=== PATIENT | male | born 1995 | race Caucasian/White ===

== ENCOUNTER 2018-09-08 22:50 | Inpatient (IN) | payer BC ==
[~2018-09-08] VITALS: Ht 185.4 cm; Wt 85.2 kg
[2018-09-08 22:52] VITALS: BP 79/21
[2018-09-08 23:09] LABS: HEMOGLOBIN 12.3 gm/dL (14.0-18.0); MCH 31.5 pg (26.0-34.0); MCHC 32.3 g/dL (28.0-37.0); MCV 97.5 fL (80.0-100.0); PLATELET COUNT 178 thou/uL (150-400); RDW 13.8 % (10.5-14.5); WBC 5.6 thou/uL (4.0-11.0)
[2018-09-08 23:16] LABS: ANION GAP 16 mmol/L (7-16); BUN 12 mg/dL (7-18); CALCIUM 7.6 mg/dL (8.5-10.1); CHLORIDE 105 mmol/L (98-107); CO2 19 mmol/L (21-32); CREATININE 1.4 mg/dL (0.7-1.3); GLUCOSE 313 mg/dL (74-106); POTASSIUM 3.4 mmol/L (3.5-5.1); SODIUM 140 mmol/L (136-145)
[2018-09-08 23:22] LABS: AMP/METHAMP Negative (Negative); BARBITURATES Negative (Negative); BENZODIAZEPINES POSITIVE (Negative); COCAINE Negative (Negative); METHADONE Negative (Negative); OPIATES POSITIVE (Negative); PCP Negative (Negative)
[2018-09-08 23:25] LABS: ALBUMIN 2.8 g/dL (3.4-5.0); SGOT 444 U/L (15-37); SGPT 323 U/L (30-65); TOTAL BILIRUBIN 0.3 mg/dL (<0.1-1.0); TOTAL PROTEIN 5.3 g/dL (6.4-8.2); TROPONIN-I <0.06 ng/mL (<0.06)
[2018-09-08 23:39] LABS: BE(vivo) -17.5 mmol/L (-2 to +3); HCO3 13.2 mmol/L (22.0-26.0); PCO2 51.5 mmHg (35.0-45.0); PO2 472.9 mmHg (80.0-100.0); sO2 99.7 % (92.0-98.0)
[2018-09-08 23:40] LABS: pH 7.025 (7.360-7.450)
[2018-09-09] VITALS (57 sets, daily range): BP systolic 79–191; BP diastolic 21–134
[2018-09-09 00:02] LABS: ABSOLUTE NEUTROPHILS 1.3 thou/uL (1.4-8.2); METAMYELOCYTES 1 %; NUCLEATED RBCS 1 /100WBC
[2018-09-09 00:49] LABS: BE(vivo) -10.7 mmol/L (-2 to +3); HCO3 14.6 mmol/L (22.0-26.0); PCO2 31.8 mmHg (35.0-45.0); PO2 203.5 mmHg (80.0-100.0); sO2 99.3 % (92.0-98.0)
[2018-09-09 00:50] LABS: pH 7.279 (7.360-7.450)
--- NOTE | 2018-09-09 05:23 | NUR ---
PT ARRIVED FROM ED AT 0235. PT UNRESPONSIVE. NO SEDATION AT THAT TIME. PT DOES NOT HAVE A COUGH OR GAG. PUPILS DILATED AND FIXED. NO CORNEAL REFLEX. PT STARTED ON HYPOTHERMIA AT 0248. TEMP REACHED AT 0520. SISTER MALISSA UPDATED AT BEDSIDE ON PLAN OF CARE. SINUS ARRHYTHMIA ON THE MONITOR.
[2018-09-09 05:59] LABS: BE(vivo) -13.4 mmol/L (-2 to +3); HCO3 14.2 mmol/L (22.0-26.0); PCO2 39.2 mmHg (35.0-45.0); PO2 53.7 mmHg (80.0-100.0); pH 7.178 (7.360-7.450); sO2 79.7 % (92.0-98.0)
[2018-09-09 06:14] LABS: HEMATOCRIT 59.7 % (42.0-52.0); MCH 30.9 pg (26.0-34.0); MCHC 32.5 g/dL (28.0-37.0); MCV 94.9 fL (80.0-100.0); RBC 6.28 mil/uL (4.50-6.00); RDW 14.2 % (10.5-14.5)
[2018-09-09 06:23] LABS: HEMOGLOBIN 19.4 gm/dL (14.0-18.0); PLATELET COUNT 281 thou/uL (150-400); WBC 26.9 thou/uL (4.0-11.0)
[2018-09-09 06:26] LABS: APTT 27.6 Seconds (24.5-32.8); INR 1.3
[2018-09-09 06:48] LABS: CALCIUM 7.3 mg/dL (8.5-10.1); CREATININE 1.5 mg/dL (0.7-1.3); MAGNESIUM 1.9 mg/dL (1.8-2.4); PHOSPHORUS 2.3 mg/dL (2.5-4.9); POTASSIUM 3.1 mmol/L (3.5-5.1)
[2018-09-09 07:01] LABS: TROPONIN-I 11.13 ng/mL (<0.06)
[2018-09-09 07:02] LABS: ABSOLUTE NEUTROPHILS 23.4 thou/uL (1.4-8.2); PLATELET ESTIMATE NORMAL
[2018-09-09 08:20] LABS: HEMATOCRIT 55.4 % (42.0-52.0); HEMOGLOBIN 18.1 gm/dL (14.0-18.0); MCH 30.7 pg (26.0-34.0); MCHC 32.7 g/dL (28.0-37.0); MCV 93.9 fL (80.0-100.0); RBC 5.9 mil/uL (4.50-6.00); RDW 14.2 % (10.5-14.5); WBC 28.4 thou/uL (4.0-11.0)
[2018-09-09 08:21] LABS: BE(vivo) -13.1 mmol/L (-2 to +3); HCO3 14.5 mmol/L (22.0-26.0); PCO2 39.3 mmHg (35.0-45.0); PO2 74.4 mmHg (80.0-100.0); pH 7.184 (7.360-7.450); sO2 91.4 % (92.0-98.0)
[2018-09-09 08:45] LABS: ALBUMIN 2.9 g/dL (3.4-5.0); CALCIUM 7.1 mg/dL (8.5-10.1); CREATININE 1.7 mg/dL (0.7-1.3); TOTAL BILIRUBIN 0.5 mg/dL (<0.1-1.0); TOTAL PROTEIN 5.9 g/dL (6.4-8.2)
[2018-09-09 08:50] LABS: POTASSIUM 2.7 mmol/L (3.5-5.1)
--- NOTE | 2018-09-09 10:05 | 2DMMODE ---
[facility] [place] [place] [address] 2 D/M-MODE ECHOCARDIOGRAM Name: ALYSON VARELA A Room #: 236-P ADM IN M.R.#: [id number] ������������� Admission: 09/09/18 ������������� Attend Phys: Yoseph Vasquez, Discharge: ��� ������������� ��� Date of : 89 Date of Service: 09/09/18 1005 �� Report #: [id number] �������� ��������������������������������������������[id number] THIS REPORT FOR: //name// APPROVED REPORT Study performed: 09/09/2018 08:22:18 EXAM: Comprehensive 2D, Doppler, and color-flow Echocardiogram Patient Location: ICU Room #: 236 Status: routine BSA: 1.98 HR: 61 bpm BP: 145/100 mmHg Rhythm: NSR Other Information Study Quality: Technically DifficultTechnically Limited Indications S^P Arrest 2D Dimensions IVSd: 9.47 (7-11mm) LVOT Diam: 22.38 (18-24mm) LVDd: 51.68 mm PWd: 9.22 (7-11mm) Ascending Ao: 33.27 (22-36mm) LVDs: 46.42 (25-40mm) Aortic Root: 30.19 mm Pulmonary Valve PV Peak Janak.: 0.73 m/s PV Peak Gr.: 2.12 mmHg Left Ventricle The left ventricle is normal size. There is severe global hypokinesis of the left ventricle. There is normal left ventricular wall thickness. Left ventricular ejection fraction is severely decreased. LVEF is 10-15%. This study is not technically sufficient to allow evaluation of the LV diastolic function. Right Ventricle The right ventricle is normal size. Right ventricle is hypokinetic. [facility] [address] [place] [address] 2 D/M-MODE ECHOCARDIOGRAM Name: AVA VARELANCSCOTTY June Room #: 236-P ADM IN M.R.#: [id number] ������������� Admission: 09/09/18 ������������� Attend Phys: Yoseph Vasquez, Discharge: ��� ������������� ��� Date of : [birth year] Date of Service: 09/09/18 1005 �� Report #: [id number] �������� ��������������������������������������������[id number] The left atrium size is normal. The right atrium size is normal. Aortic Valve The aortic valve is normal in structure. Trace aortic regurgitation. There is no aortic valvular stenosis. Mitral Valve The mitral valve is normal in structure. Trace mitral regurgitation. No evidence of mitral valve stenosis. Tricuspid Valve Tricuspid valve is not well visualized. There is no tricuspid valve regurgitation noted. Pulmonic Valve The pulmonary valve is normal in structure. There is no pulmonic valvular regurgitation. Great Vessels The aortic root is normal in size. IVC is normal in size and collapses >50% with inspiration. Pericardium There is no pericardial effusion. <Conclusion> The left ventricle is normal size. There is severe global hypokinesis of the left ventricle. LVEF is 10-15%. The aortic valve is normal in structure. Trace aortic regurgitation. The mitral valve is normal in structure. Trace mitral regurgitation. Tricuspid valve is not well visualized. The pulmonary valve is normal in structure. There is no pericardial effusion. ��������������������������������������������� <ELECTRONICALLY SIGNED> ���������������������������������������� By: Jak Lorenzo MD ��������������������������������������������� 09/09/18 1005 1005 1005 Jak Lorenzo MD /INF
--- NOTE | 2018-09-09 10:19 | NUR ---
CM ASSESSMENT: CASE OPENED FOR DC PLANNING. CLINICAL INFO REVIEWED. PT ADMITTED AFTER OUTSIDE HOSPITAL ARREST, ASYSOLE WHEN UPON EMS ARRIVAL THEN VF. CURRENTLY HYPOTHERMIC WITHOUT COOLING BLANKET, ON VENT, UNRESPONSIVE. MANY FAMILY PRESENT, INCLUDING PARENTS. PT BAL 80 AND URINE DRUG SCREEN POSITIVE FOR OPIATES, BENZOS, THC. EEG THIS AM, NEURO CONSULT THIS AM. SPIRITUAL CARE NOTIFIED AND HER TO SUPPORT FAMMILY AND NOTIFIED PT/FAMILY'S STEWARD/STEWARDESS THIRD CLASS.
[2018-09-09 12:54] LABS: HEMATOCRIT 53.3 % (42.0-52.0); HEMOGLOBIN 18.2 gm/dL (14.0-18.0); MCH 31.1 pg (26.0-34.0); MCV 91.3 fL (80.0-100.0); PLATELET COUNT 229 thou/uL (150-400); RBC 5.84 mil/uL (4.50-6.00); RDW 13.9 % (10.5-14.5); WBC 22.7 thou/uL (4.0-11.0)
[2018-09-09 13:07] LABS: APTT 28.7 Seconds (24.5-32.8); INR 1.3; PROTIME 13.4 Seconds (9.3-11.4)
[2018-09-09 13:14] LABS: CALCIUM 7.3 mg/dL (8.5-10.1); CREATININE 1.5 mg/dL (0.7-1.3); MAGNESIUM 1.7 mg/dL (1.8-2.4); PHOSPHORUS 1.5 mg/dL (2.5-4.9)
[2018-09-09 13:18] LABS: POTASSIUM 2.5 mmol/L (3.5-5.1); TROPONIN-I 15.51 ng/mL (<0.06)
[2018-09-09 13:22] LABS: ABSOLUTE NEUTROPHILS 20.4 thou/uL (1.4-8.2); PLATELET ESTIMATE NORMAL
--- NOTE | 2018-09-09 15:21 | EKG ---
[address] [address] ELECTROCARDIOGRAM REPORT Name: ALYSON VARELA Room #: 236- ADM IN M.R.#: [id number] ������������������ Admission: 09/09/18 ������������������ Attend Phys: Yoseph Vasquez MD Discharge: ������������������ Date of : [birth year] Report #: [id number] ����������������������������������������������������������������� [id number] THIS REPORT FOR: //name// [facility] ED Test Date: 2018-09-08 Test Time: 23:26:34 Pat Name: ALYSON AVERY Department: Room: [facility] Gender: M Bioprocess Engineer: CHELITA : 1995 Requested By: Brook Quintana Order Number: [id number] MD: Jak Lorenzo Measurements Intervals [place] Rate: 97 P: 72 CO: 158 QRS: 74 QRSD: 120 T: 37 QT: 410 QTc: 521 Interpretive Statements Sinus rhythm Nonspecific intraventricular conduction delay Nonspecific ST-T wave abnormalities No previous ECG available for comparison Electronically Signed On 09-09-2018 15:21:06 CDT by Jak Lorenzo [email or web address] ��������������������������������������������� <ELECTRONICALLY SIGNED> ���������������������������������������� By: Jak Lorenzo MD ��������������������������������������������� 09/09/18 1521 25 25 Jak Lorenzo MD /EPI
[2018-09-09 18:09] LABS: ABSOLUTE NEUTROPHILS 17.5 thou/uL (1.4-8.2); BASOPHILS 0.1 % (0.0-2.0); HEMATOCRIT 54.5 % (42.0-52.0); HEMOGLOBIN 18.5 gm/dL (14.0-18.0); LYMPHOCYTES 4.7 % (24.0-44.0); MCH 30.6 pg (26.0-34.0); MCHC 33.9 g/dL (28.0-37.0); MCV 90.3 fL (80.0-100.0); MONOCYTES 5.2 % (1.0-8.0); PLATELET COUNT 230 thou/uL (150-400); RBC 6.04 mil/uL (4.50-6.00); RDW 13.9 % (10.5-14.5); WBC 19.4 thou/uL (4.0-11.0)
[2018-09-09 18:22] LABS: CALCIUM 7.6 mg/dL (8.5-10.1); CREATININE 1.3 mg/dL (0.7-1.3); MAGNESIUM 2.2 mg/dL (1.8-2.4); PHOSPHORUS 1.3 mg/dL (2.5-4.9); POTASSIUM 3.2 mmol/L (3.5-5.1)
--- NOTE | 2018-09-09 18:22 | NUR ---
Assumed care of patient at 0715. Dr. Koo at bedside placing central line and arterial line. Initially on dopamine gtt for low heart rate, weaned off by 0900. Blood pressure trending up through the day, highest readings 190s/100s per a-line. Mannitol IVP given x1 with little change; PRN IVP hydralazine used with longer effect. Down for repeat CT head as ordered, Dr. Jenkins aware of results. Patient neuro assessment remains unchanged through the day. Remains off any sedation. Hypothermia protocol continues, patient to begin re-warming at 0248 on 09/10/18. MTN referral call made for GCS 3. Emotional support given and all questions answered. Parents Husam and Ashlyn at bedside all day, several other family and friends visiting as well. Continue to monitor closely.
[2018-09-09 18:23] LABS: APTT 29.1 Seconds (24.5-32.8); INR 1.2; PROTIME 12.7 Seconds (9.3-11.4)
[2018-09-10] VITALS (64 sets, daily range): BP systolic 70–184; BP diastolic 26–126
[2018-09-10 00:17] LABS: ABSOLUTE NEUTROPHILS 14.4 thou/uL (1.4-8.2); BASOPHILS 0.1 % (0.0-2.0); HEMOGLOBIN 17.9 gm/dL (14.0-18.0); MCH 30.8 pg (26.0-34.0); MCHC 33.8 g/dL (28.0-37.0); MCV 90.9 fL (80.0-100.0); MONOCYTES 5.7 % (1.0-8.0); PLATELET COUNT 182 thou/uL (150-400); POLYS 87.2 % (36.0-66.0); RBC 5.83 mil/uL (4.50-6.00); WBC 16.5 thou/uL (4.0-11.0)
[2018-09-10 00:23] LABS: CALCIUM 7.6 mg/dL (8.5-10.1); CREATININE 1.1 mg/dL (0.7-1.3); PHOSPHORUS 2.1 mg/dL (2.5-4.9)
[2018-09-10 00:28] LABS: APTT 29.9 Seconds (24.5-32.8); INR 1.1; PROTIME 11.7 Seconds (9.3-11.4)
[2018-09-10 00:29] LABS: POTASSIUM 2.6 mmol/L (3.5-5.1)
--- NOTE | 2018-09-10 05:11 | NUR ---
ASSUMED PATIENT CARE AT 1900. PATIENT CURRENTLY ON HYPOTHERMIA PROTOCOL WITH PLAN TO BEGIN REWARMING AT 0300. PATIENT IS NONRESPONSIVE AND IS WITHOUT A CORNEAL/PUPIL/GAG/COUGH REFLEX. PATIENT NOTED BREATHING OVER THE VENT. PROPOFOL STARTED AND MORPHINE ORDERED. FAMILY AT BEDSIDE AND UPDATED ON THE PLAN OF CARE. NOT PROGRESSING TOWARDS GOAL.
[2018-09-10 05:31] LABS: BE(vivo) -0.5 mmol/L (-2 to +3); HCO3 23.1 mmol/L (22.0-26.0); PCO2 35.6 mmHg (35.0-45.0); PO2 416.2 mmHg (80.0-100.0); sO2 99.8 % (92.0-98.0)
[2018-09-10 06:01] LABS: HEMATOCRIT 49.1 % (42.0-52.0); HEMOGLOBIN 16.6 gm/dL (14.0-18.0); MCH 30.6 pg (26.0-34.0); MCHC 33.8 g/dL (28.0-37.0); MCV 90.5 fL (80.0-100.0); RBC 5.42 mil/uL (4.50-6.00); RDW 13.8 % (10.5-14.5)
[2018-09-10 06:07] LABS: CALCIUM 7.3 mg/dL (8.5-10.1); CREATININE 1.1 mg/dL (0.7-1.3); MAGNESIUM 1.8 mg/dL (1.8-2.4); PHOSPHORUS 2.6 mg/dL (2.5-4.9); POTASSIUM 3.1 mmol/L (3.5-5.1)
--- NOTE | 2018-09-10 11:07 | HC ---
[facility] [place] [address] CONSULTATION Name: AVERYALYSON Room #: 236-P [facility] IN M.R.#: [id number] Admission: 09/09/18 ������������������ Attend Phys: Yoseph Vasquez MD Discharge: ������������������ Date of : [birth year] Report #: [id number] THIS REPORT FOR: //name// CC: FAM unknown José Hayes Manning DATE OF SERVICE: 09/09/2018 NEUROLOGY CONSULTATION HISTORY OF PRESENT ILLNESS: The patient is a 22-year-old male who was found down at a friend's home. His mother was able to provide some history. She states she was notified of the event when the Frame Straightener came to her door. Apparently, the patient was supposed to come home for dinner, but was at a friend's house. Apparently, he was found face down by his friend. The patient had gone out with another friend and had returned home acting not himself. The patient fell, got up, said he was fine, and then was found face down by his friend 30 minutes later. When EMS arrived, the patient was in asystole. The patient is currently on a cooling protocol. His mother and father are in the room. PAST MEDICAL HISTORY: Negative. PAST SURGICAL HISTORY: Negative. MEDICATIONS: None. ALLERGIES: None. PHYSICAL EXAMINATION: VITAL SIGNS: Temperature 31.1 degrees centigrade per rectum, pulse rate 57, respiratory rate 16 on the ventilator, blood pressure 206/118, bedside pulse oximetry 100% on the ventilator. NEUROLOGIC: Pupils are mid position and nonreactive. Corneal reflexes are absent. Oculocephalic reflex is absent. The nurse states the patient does not have a gag with suctioning. There is no spontaneous movement of the extremities. The patient is not on sedation. LABORATORY DATA: White blood cell count 28.4, hemoglobin 18.1, hematocrit 55.4, MCV 93.9. INR 1.3. Blood gas, on arrival the patient's pH was 7.183, pCO2 of 74.4. Chemistry: Sodium 142, potassium 2.7, chloride 107, carbon dioxide 19, BUN 19, creatinine 1.9, GFR 50, glucose 232. Lactic acid 5.9, calcium 7.1, phosphorus 2.1, magnesium 1.8. AST 1627, ALT 787, alkaline phosphatase 102. Creatine kinase 955. Troponin at 11.13. BNP 484. Total protein 5.9, albumin [address] [address] CONSULTATION Name: ALYSON VARELA Room #: 236-P [facility] IN [facility]#: [id number] Admission: 09/09/18 ������������������ Attend Phys: Yoseph Vasquez MD Discharge: ������������������ Date of : [birth year] Report #: [id number] 2.9, triglycerides 121. Toxicology, urine positive for opiates, benzodiazepines and marijuana. Serum alcohol level 82. IMPRESSION: This patient has had a significant anoxic injury. The initial CT scan of the head demonstrated cerebral edema. The repeat CT scan of the head demonstrates the development of symmetric low densities within the caudate nucleus and basal ganglia bilaterally likely reflecting manifestations of diffuse ischemia and cerebral hemorrhage, petechial hemorrhage is also developed along the anterior margin of the left caudate nucleus. The patient has had an electroencephalogram done. This did not show any evidence of seizure activity, but is consistent with a severe anoxic injury. Given the findings of the CT scan and electroencephalogram, the patient's prognosis is poor; however, he will be reevaluated tomorrow morning. A repeat electroencephalogram will be done once the patient has returned to a normal body temperature. ��������������������������������������������� <ELECTRONICALLY SIGNED> ���������������������������������������� By: Ronit Jenkins DO ��������������������������������������������� 09/10/18 1107 1231 0350 Ronit Jenkins DO /nt
--- NOTE | 2018-09-10 11:08 | EEG ---
[facility] [place] [address] ELECTROENCEPHALOGRAM Name: AVERYALYSON A Room #: 236-P [facility] IN M.R.#: [id number] ������������������ Admission: 09/09/18 ������������������ Attend Phys: Yoseph Vasquez MD Discharge: ������������������ Date of : [birth year] Report #: [id number] ����������������������������������������������������������������� [id number] THIS REPORT FOR: //name// CC: FAM unknown José Hayes Manning The patient is a 22-year-old male who was found down by his friend. The patient has an anoxic encephalopathy. He is currently on a cooling protocol, but is not on sedation. DESCRIPTION: The record consists of low amplitude activity, interrupted by bursts of poorly formed spike and wave activity lasting no longer than 1 second. The bursts last sometimes as long as 10 seconds period. There is no clear epileptiform activity noted. IMPRESSION: This is a highly abnormal adult record consistent with severe anoxic encephalopathy. There is no evidence of subclinical seizures. ���������������������������������������� <ELECTRONICALLY SIGNED> ���������������������������������������� By: Ronit Jenkins DO ��������������������������������������������� 09/10/18 1108 1233 1354 Ronit Jenkins DO /nt
[2018-09-10 11:59] LABS: ALBUMIN 2.6 g/dL (3.4-5.0); DIRECT BILIRUBIN 0.2 mg/dL (<0.1-0.3); TOTAL BILIRUBIN 0.4 mg/dL (<0.1-1.0); TOTAL PROTEIN 5.8 g/dL (6.4-8.2)
--- NOTE | 2018-09-10 15:22 | NUR ---
VASCULAR ACCESS NURSE ROUNDING- LINE CONTINUES TO BE APPROPRIATE, CRITICAL PATIENT WITH MULTIPLE MEDS AND CVP
[2018-09-10 17:15] LABS: BE(vivo) 1.3 mmol/L (-2 to +3); HCO3 25.5 mmol/L (22.0-26.0); PCO2 39.3 mmHg (35.0-45.0); PO2 129.8 mmHg (80.0-100.0); sO2 98.7 % (92.0-98.0)
[2018-09-10 19:58] LABS: BE(vivo) -1.3 mmol/L (-2 to +3); HCO3 24.8 mmol/L (22.0-26.0); PCO2 46.2 mmHg (35.0-45.0); PO2 80.9 mmHg (80.0-100.0); pH 7.347 (7.360-7.450); sO2 95.3 % (92.0-98.0)
--- NOTE | 2018-09-10 20:18 | NUR ---
Assumed care of patient at 0700. Patient already started on passive re-warming. Reached warming target temp at 1145. Propofol drip that had been previous started weaned off. Patient is overbreathing the ventilator somewhat, but no need to resume any sedation drip for RR control. EEG completed as ordered, MRI head completed as ordered. Dr. Jenkins reviewed results with parents. Tachycardia and elevated BP treated with lisinipril and metoprolol which brought HR down to 100s and BP down to 120s/80s-90s. Patient maintained here for a few hours without need for anything else. Approx 1730, patient BP readings trending down, new orders for maintainance IVF started, with no improvement. BP continuing to drop. Patient spiked temp to 102. Started on levophed gtt, currently maxed out with MAP still <60. Dr. Koo and Dr. Jenkins notified of changes. Dr. Koo to talk with family regarding code status. Report given to oncoming RN.
--- NOTE | 2018-09-11 01:24 | NUR ---
ASSUMED CARE OF PT AT 1900. PT UNRESPONSIVE. PT PROGRESSIVELY GETTING HYPOTENSIVE, TACHYCARDIC AND FEBRILE AT THE END OF PREVIOUS SHIFT. DR CLAROS AWARE AND ARRIVED TO PT's ROOM TO REPLACE A-LINE AND SPEAK TO FAMILY REGARDING CODE STATUS. TEMP PROBE PLACED ON PT. DESPITE MULTIPLE ATTEMPTS TO REGULATE PTs TEMP WE WERE UNABL TO ACHIEVE IT. PT PLACED ON ARTIC SUN AGAIN THIS KYLE, DR CLAROS AWARE AND OK WITH INTERVENTION. PT's TEMP ABLE TO GO DOWN WITH THIS. PT STARTED ON DOBUTAMINE AT 2200. PT PREVIOUSLY STARTED AND MAXED ON LEVOPHED AND NEOSYNEPHRINE. ABLE TO TITRATE PRESSORS AFTER TEMPERATURE REGULATION. SPOKE TO DR VEGAS (NEURO) REGARDING ORDERS FOR MANNITOL AND SEDATION. DR VEGAS OK WITH MANNITOL IF IMPROVEMENT IN PT's BP. ORDER FOR MANNITOL GIVEN AT 2200. WILL REPEAT DOSE IN 4 HOURS IF BP TOLERATING. DR VEGAS AWARE OF PTs SHIVERING/GENERALIZED TREMOR ACTIVITY AND OK WITH LOW DOSE PROPOFOL ONCE PTs BP IMPROVED. PT STARTED ON PROPOFOL AT 0130 AT LOW DOSE. WILL CONTINUE TO MONITOR PT. FAMILY HAS BEEN UPDATED THROUGH OUT SHIFT.
[2018-09-11 04:49] LABS: BE(vivo) 0 mmol/L (-2 to +3); HCO3 26.6 mmol/L (22.0-26.0); PCO2 50.8 mmHg (35.0-45.0); PO2 163.3 mmHg (80.0-100.0); pH 7.337 (7.360-7.450)
--- NOTE | 2018-09-11 06:25 | NUR ---
ASSUMED PATIENT CARE AT 1900. PATIENT FEBRILE WITH TEMPERATURE HIGH 105.9 AND HYPOTENSIVE. LEVOPHED IS INFUSING. PHENYLEPHRINE AND DOBUTAMINE ADDED. PATIENT RECEIVED TYLENOL AND SEVERAL ICE PACKS WERE PLACED WITH NO DECREASE IN TEMPERATURE. PLACED PATIENT ON THE ARTIC SUN TO BRING DOWN AND CONTROL HIS TEMPERATURE. BLOOD PRESSURE STABILIZED AND PATIENT WAS GIVEN MANNITOL. PATIENT REMAINS UNRESPONSIVE TO PAIN AND DOES NOT HAVE A CORNEAL/PUPIL/GAG/COUGH REFLEX. PUPILS ARE FIXATED AT 5-6+. FAMILY UPDATED ON CARE PLAN AND ALL QUESTIONS WERE ANSWERED. PATIENT NOT PROGRESSING TOWARD GOAL.
[2018-09-11 07:28] LABS: HEMATOCRIT 39.8 % (42.0-52.0); MCH 30.9 pg (26.0-34.0); MCHC 33.6 g/dL (28.0-37.0); MCV 92.2 fL (80.0-100.0); RBC 4.32 mil/uL (4.50-6.00); RDW 14.4 % (10.5-14.5); WBC 14.5 thou/uL (4.0-11.0)
[2018-09-11 07:37] LABS: ALBUMIN 2.7 g/dL (3.4-5.0); CALCIUM 7.2 mg/dL (8.5-10.1); CREATININE 1.1 mg/dL (0.7-1.3); MAGNESIUM 1.5 mg/dL (1.8-2.4); POTASSIUM 4.5 mmol/L (3.5-5.1); TOTAL BILIRUBIN 0.5 mg/dL (<0.1-1.0); TOTAL PROTEIN 5.5 g/dL (6.4-8.2)
[2018-09-11 07:39] LABS: HEMOGLOBIN 13.4 gm/dL (14.0-18.0)
[2018-09-11 11:38] LABS: BE(vivo) -4.5 mmol/L (-2 to +3); HCO3 23.3 mmol/L (22.0-26.0); PCO2 53.7 mmHg (35.0-45.0); PO2 177.2 mmHg (80.0-100.0)
[2018-09-11 11:39] LABS: pH 7.255 (7.360-7.450)
--- NOTE | 2018-09-11 12:33 | EEG ---
[facility] [place] [address] ELECTROENCEPHALOGRAM Name: ALYSON VARELA Shaylee Room #: 236-P [facility] IN M.R.#: [id number] ������������������ Admission: 09/09/18 ������������������ Attend Phys: Yoseph Vasquez MD Discharge: ������������������ Date of : [birth year] Report #: [id number] ����������������������������������������������������������������� [id number] THIS REPORT FOR: //name// CC: FAM unknown YOSEPH Manning DATE OF SERVICE: 09/10/2018 The patient is a 22-year-old male with anoxic encephalopathy. An EEG is requested for further evaluation. DESCRIPTION: The record consists of low amplitude, 25 cycles per second activity, diffuse and bilaterally symmetrical. This attenuation of the background record sometimes lasts up to 15 seconds. It is interrupted by single spike and wave discharges, which are predominant over the frontal head regions. These occur as single spikes, sometimes followed by attenuation of the background record for 2 seconds. There was no change of state during the recording. Photic stimulation is non-activating. IMPRESSION: This is a significantly abnormal adult record. Medication effect may be seen as a cause for the 20-25 cycles per second activity (beta activity) as the patient is now on propofol. Otherwise, single spike discharges predominant over the bifrontal head regions occur every 2-15 seconds. There is no evidence of subclinical seizures. This record is consistent with severe encephalopathy most likely secondary to anoxia. ���������������������������������������� <ELECTRONICALLY SIGNED> ���������������������������������������� By: Ronit Jenkins DO ��������������������������������������������� 09/11/18 1233 1449 1838 Ronit Jenkins, /nt
[2018-09-11 13:01] LABS: BE(vivo) -3.6 mmol/L (-2 to +3); HCO3 23.6 mmol/L (22.0-26.0); PCO2 51.2 mmHg (35.0-45.0); PO2 176.8 mmHg (80.0-100.0); pH 7.282 (7.360-7.450)
--- NOTE | 2018-09-11 19:30 | NUR ---
SHIFT SUMMARY: PT UNRESPONSIVE, FACE FLUSHED, INTERMITTENTLY BREATHS ABOVE VENT SET RATE, COOLING DEVICE INTACT TO KEEP TEMP 37 DEGREES, ST, DOBUTAMINE AND PROPOFOL TITRATED OFF, METOPROLOL GIVEN FOR ELEVATED HR AND BP- WELL TOLERATED, HYDRALAZINE 20MG IV GIVEN FOR ELEVATED BP. VENT SETTING CHANGED IN RESPONSE TO ABG'S RESULTS CALLED TO DR. CLAROS, LARGE AMOUNT URINE OUTPUT PER RODRIGEZ. DR. ROSS SPOKE WITH BOTH PARENTS REGARDING DNR STATUS. BOTH PARENTS AGREED AND REQUESTED DNR STATUS. PAGED DR. FORDE AND DR. CLAROS. DNR STATUS INITIATED PER ORDER. SEE ASSESSMENTS FOR DETAILS. SEVERAL FAMILY MEMBERS PRESENT INTERMITTENTLY. ANSWERING THEIR QUESTIONS AND PROVIDING SUPPORT. PT NOT PROGRESSING.
[2018-09-12] VITALS (22 sets, daily range): BP systolic 112–163; BP diastolic 47–103
[2018-09-12 05:44] LABS: HEMATOCRIT 39.9 % (42.0-52.0); HEMOGLOBIN 13.1 gm/dL (14.0-18.0); MCH 30.7 pg (26.0-34.0); MCHC 32.9 g/dL (28.0-37.0); MCV 93.1 fL (80.0-100.0); RBC 4.28 mil/uL (4.50-6.00); RDW 14.3 % (10.5-14.5); WBC 20.1 thou/uL (4.0-11.0)
[2018-09-12 05:48] LABS: CALCIUM 8.3 mg/dL (8.5-10.1); CREATININE 0.9 mg/dL (0.7-1.3); POTASSIUM 4.1 mmol/L (3.5-5.1)
--- NOTE | 2018-09-12 06:30 | NUR ---
ASSUMED PATIENT CARE AT 1900. PATIENT CONTINUES TO REMAIN UNRESPONSIVE TO PAINFUL STIMULI AND WITHOUT ANY BRAINSTEM REFLEXES. PUPILS ARE FIXATED AT A 6+. FAMILY APPROACHED THIS RN TO TALK ABOUT ORGAN DONATION. [facility] NOTIFIED AND A CAR RIDER WILL VISIT WITH THE FAMILY TODAY. PATIENT NOT PROGRESSING TOWARDS GOAL.
--- NOTE | 2018-09-12 18:00 | NUR ---
Pt unresponsive. No volunatary movement observed. No cough/gag reflex observed. No pupillary reaction seen on right. Only delayed sluggish minimal pupillary reaction seen on left with direct bright light. Maintained on the ventilator. Small amt of secretions suctioned. NG to LIS. Fecal management system patent with foul smelling liquid brown stool. Family at bedside throughout the day. Family spoke with representatives from [employer] regarding possible organ donation. No decision made today. Pt on Artic sun to maintain temperature. Report given to RN assuming care.
--- NOTE | 2018-09-12 21:21 | NUR ---
GCS 3. DOES NOT OPEN EYES, NONVERBAL, NO MOTOR RESPONSE. NO COUGH OR GAG REFLEX. PUPILS DILATED AND NON-REACTIVE. FEBRILE. ARCTIC SUN IN USE. SINUS TACH ON MONITOR. SMALL VOLUME YELLOW SPUTUM. SUCTION PRN. NG TUBE TO LIS. RAIN ROOT TO AGUSTIN. FAMILY AT BEDSIDE. VITAL SIGNS AND ASSESSMENTS DOCUMENTED. WILL CONTINUE TO MONITOR.
[2018-09-13] VITALS (23 sets, daily range): BP systolic 104–143; BP diastolic 36–89
[2018-09-13 04:19] LABS: CALCIUM 8.2 mg/dL (8.5-10.1); CREATININE 0.7 mg/dL (0.7-1.3); POTASSIUM 4.1 mmol/L (3.5-5.1)
[2018-09-13 04:26] LABS: HEMATOCRIT 40.3 % (42.0-52.0); HEMOGLOBIN 13.2 gm/dL (14.0-18.0); MCH 30.5 pg (26.0-34.0); MCHC 32.8 g/dL (28.0-37.0); MCV 93.1 fL (80.0-100.0); RBC 4.33 mil/uL (4.50-6.00); RDW 14.2 % (10.5-14.5); WBC 17.3 thou/uL (4.0-11.0)
[2018-09-13 05:28] LABS: BE(vivo) 2.9 mmol/L (-2 to +3); HCO3 27.3 mmol/L (22.0-26.0); PCO2 41.2 mmHg (35.0-45.0); PO2 206.7 mmHg (80.0-100.0); pH 7.439 (7.360-7.450); sO2 99.4 % (92.0-98.0)
[2018-09-13 10:43] LABS: HCO3 28.3 mmol/L (22.0-26.0); PCO2 41.7 mmHg (35.0-45.0); PO2 191.3 mmHg (80.0-100.0); sO2 99.4 % (92.0-98.0)
[2018-09-13 16:37] LABS: BE(vivo) 4.8 mmol/L (-2 to +3); HCO3 25.9 mmol/L (22.0-26.0); PCO2 28.7 mmHg (35.0-45.0); PO2 457.1 mmHg (80.0-100.0); pH 7.574 (7.360-7.450); sO2 99.9 % (92.0-98.0)
[2018-09-13 16:48] LABS: HEMATOCRIT 39.2 % (42.0-52.0); HEMOGLOBIN 13.1 gm/dL (14.0-18.0); MCH 30.6 pg (26.0-34.0); MCHC 33.4 g/dL (28.0-37.0); MCV 91.6 fL (80.0-100.0); RBC 4.28 mil/uL (4.50-6.00); RDW 13.9 % (10.5-14.5); WBC 16.3 thou/uL (4.0-11.0)
[2018-09-13 16:58] LABS: CALCIUM 8.6 mg/dL (8.5-10.1); CREATININE 0.8 mg/dL (0.7-1.3); POTASSIUM 3.5 mmol/L (3.5-5.1)
[2018-09-13 17:02] LABS: APTT 24.3 Seconds (24.5-32.8); FIBRINOGEN 402.9 mg/dL (210-360); PROTIME 10.7 Seconds (9.3-11.4)
[2018-09-13 17:04] LABS: ALBUMIN 2.8 g/dL (3.4-5.0); DIRECT BILIRUBIN 0.1 mg/dL (<0.1-0.3); MAGNESIUM 1.8 mg/dL (1.8-2.4); PHOSPHORUS 1.2 mg/dL (2.5-4.9); TOTAL BILIRUBIN 0.8 mg/dL (<0.1-1.0); TOTAL PROTEIN 5.5 g/dL (6.4-8.2)
[2018-09-13 17:06] LABS: URINE BILIRUBIN NEGATIVE (Negative); URINE BLOOD NEGATIVE (Negative); URINE CLARITY CLEAR; URINE COLOR YELLOW; URINE GLUCOSE-RANDOM* NEGATIVE (Negative); URINE KETONES 2+ (Negative); URINE LEUKOCYTES-REFLEX NEGATIVE (Negative); URINE NITRITE-REFLEX NEGATIVE (Negative); URINE PROTEIN (DIPSTICK) TRACE (Negative); URINE SPECIFIC GRAVITY 1.015 (1.005-1.035); URINE UROBILINOGEN 0.2 E.U./dl (0.2-1.0)
[2018-09-13 17:13] LABS: ABSOLUTE NEUTROPHILS 15.5 thou/uL (1.4-8.2); ANISOCYTOSIS 1+
[2018-09-13 17:14] LABS: PLATELET COUNT 93 thou/uL (150-400)
[2018-09-14] VITALS (23 sets, daily range): BP systolic 135–176; BP diastolic 75–115
[2018-09-14 00:51] LABS: BE(vivo) 4.4 mmol/L (-2 to +3); HCO3 27.5 mmol/L (22.0-26.0); PCO2 35.7 mmHg (35.0-45.0); PO2 128.9 mmHg (80.0-100.0); pH 7.504 (7.360-7.450); sO2 98.8 % (92.0-98.0)
[2018-09-14 02:17] LABS: HEMATOCRIT 38.5 % (42.0-52.0); HEMOGLOBIN 12.6 gm/dL (14.0-18.0); MCH 30.6 pg (26.0-34.0); MCHC 32.8 g/dL (28.0-37.0); MCV 93.3 fL (80.0-100.0); PLATELET COUNT 98 thou/uL (150-400); RBC 4.12 mil/uL (4.50-6.00); RDW 14.2 % (10.5-14.5); WBC 14.7 thou/uL (4.0-11.0)
[2018-09-14 02:25] LABS: ALBUMIN 2.7 g/dL (3.4-5.0); CALCIUM 8.4 mg/dL (8.5-10.1); CREATININE 0.8 mg/dL (0.7-1.3); DIRECT BILIRUBIN 0.1 mg/dL (<0.1-0.3); MAGNESIUM 1.9 mg/dL (1.8-2.4); PHOSPHORUS 1.7 mg/dL (2.5-4.9); POTASSIUM 3.6 mmol/L (3.5-5.1); TOTAL BILIRUBIN 0.8 mg/dL (<0.1-1.0); TOTAL PROTEIN 5.2 g/dL (6.4-8.2)
[2018-09-14 02:26] LABS: APTT 26.3 Seconds (24.5-32.8); FIBRINOGEN 334.9 mg/dL (210-360); PROTIME 10.8 Seconds (9.3-11.4)
[2018-09-14 02:46] LABS: ABSOLUTE NEUTROPHILS 12.6 thou/uL (1.4-8.2)
[2018-09-14 02:47] LABS: PLATELET ESTIMATE DECREASED
[2018-09-14 04:11] LABS: GLYCOHEMOGLOBIN (HGB A1C) 5.1 % (4.8-5.6)
[2018-09-14 06:28] LABS: HEMATOCRIT 37.5 % (42.0-52.0); HEMOGLOBIN 12.5 gm/dL (14.0-18.0); MCH 30.8 pg (26.0-34.0); MCHC 33.4 g/dL (28.0-37.0); MCV 92.2 fL (80.0-100.0); PLATELET COUNT 88 thou/uL (150-400); RBC 4.07 mil/uL (4.50-6.00); RDW 13.8 % (10.5-14.5)
[2018-09-14 06:45] LABS: ALBUMIN 2.7 g/dL (3.4-5.0); CALCIUM 8.3 mg/dL (8.5-10.1); CREATININE 0.8 mg/dL (0.7-1.3); POTASSIUM 3.8 mmol/L (3.5-5.1); TOTAL BILIRUBIN 0.9 mg/dL (<0.1-1.0); TOTAL PROTEIN 5.3 g/dL (6.4-8.2)
--- NOTE | 2018-09-14 07:06 | NUR ---
SHIFT NOTE PT GCS OF 3. PT TURNED AND ORAL CARE PERFORMED Q2H AND PRN. MRN WAS ON THE CASE PT IS FOLLOWING. PARENTS OVER THE NIGHT CHANGED THEIR MIND ON MTN AROUND 0300 AND THEY PULLED OFF THE CASE SO ORDERS WERE CANCELED AND ORIGINAL CARE WAS RESUMED. PT HAD NO S/SX OF PAIN, SOA, CHEST PAIN, OR NV. PT ASSESSMENT AND VS ORDERED. WILL CONINUE TO MONITOR.
[2018-09-14 08:00] LABS: ABSOLUTE NEUTROPHILS 11.3 thou/uL (1.4-8.2)
[2018-09-14 08:01] LABS: ANISOCYTOSIS SLIGHT
[2018-09-14 17:26] LABS: MCH 30.6 pg (26.0-34.0); MCHC 33.4 g/dL (28.0-37.0); MCV 91.7 fL (80.0-100.0); PLATELET COUNT 94 thou/uL (150-400); RBC 4.26 mil/uL (4.50-6.00); WBC 13.4 thou/uL (4.0-11.0)
[2018-09-14 17:38] LABS: APTT 23.3 Seconds (24.5-32.8); INR 1.1; PROTIME 11.2 Seconds (9.3-11.4)
[2018-09-14 17:39] LABS: CALCIUM 8.4 mg/dL (8.5-10.1); CREATININE 0.8 mg/dL (0.7-1.3); POTASSIUM 3.7 mmol/L (3.5-5.1)
[2018-09-14 17:44] LABS: HCO3 23.8 mmol/L (22.0-26.0); PCO2 32.7 mmHg (35.0-45.0); PO2 542.2 mmHg (80.0-100.0); sO2 99.9 % (92.0-98.0)
[2018-09-14 17:44] LABS: ALBUMIN 2.9 g/dL (3.4-5.0); MAGNESIUM 2.1 mg/dL (1.8-2.4); PHOSPHORUS 3.3 mg/dL (2.5-4.9); TOTAL BILIRUBIN 0.8 mg/dL (<0.1-1.0); TOTAL PROTEIN 5.5 g/dL (6.4-8.2)
[2018-09-14 18:57] LABS: ABSOLUTE NEUTROPHILS 12.7 thou/uL (1.4-8.2)
[2018-09-14 20:09] LABS: URINE BILIRUBIN NEGATIVE (Negative); URINE BLOOD TRACE (Negative); URINE CLARITY CLEAR; URINE COLOR YELLOW; URINE GLUCOSE-RANDOM* NEGATIVE (Negative); URINE KETONES 1+ (Negative); URINE LEUKOCYTES-REFLEX NEGATIVE (Negative); URINE NITRITE-REFLEX NEGATIVE (Negative); URINE PROTEIN (DIPSTICK) NEGATIVE (Negative); URINE UROBILINOGEN 0.2 E.U./dl (0.2-1.0)
--- NOTE | 2018-09-14 23:47 | NUR ---
URINE OUTPUT HAS INCREASED IN THE PAST 2 HR. [facility] STAFF REQUESTED TO GIVE DDAVP. NOTIFIED MS.K DASH NP. NEW ORDER OBTAIN.
[2018-09-14 23:57] LABS: BE(vivo) 2.8 mmol/L (-2 to +3); HCO3 25.9 mmol/L (22.0-26.0); pH 7.487 (7.360-7.450)
[2018-09-14 23:58] LABS: PO2 0 mmHg (80.0-100.0)
[2018-09-15] VITALS (19 sets, daily range): BP systolic 79–145; BP diastolic 29–77
[2018-09-15 00:02] LABS: BE(vivo) 2.9 mmol/L (-2 to +3); PCO2 35.1 mmHg (35.0-45.0); pH 7.488 (7.360-7.450); sO2 99.9 % (92.0-98.0)
[2018-09-15 00:16] LABS: HEMATOCRIT 39.1 % (42.0-52.0); MCH 30.6 pg (26.0-34.0); MCHC 33.2 g/dL (28.0-37.0); MCV 92.3 fL (80.0-100.0); PLATELET COUNT 96 thou/uL (150-400); RBC 4.24 mil/uL (4.50-6.00); RDW 13.8 % (10.5-14.5); WBC 13.9 thou/uL (4.0-11.0)
[2018-09-15 00:23] LABS: ANION GAP 10 mmol/L (7-16); BUN 24 mg/dL (7-18); CALCIUM 8.5 mg/dL (8.5-10.1); CHLORIDE 112 mmol/L (98-107); CO2 27 mmol/L (21-32); CREATININE 0.7 mg/dL (0.7-1.3); GLUCOSE 199 mg/dL (74-106); POTASSIUM 3.9 mmol/L (3.5-5.1); SODIUM 149 mmol/L (136-145)
[2018-09-15 00:28] LABS: FIBRINOGEN 294.4 mg/dL (210-360); INR 1.1; PROTIME 11.4 Seconds (9.3-11.4)
[2018-09-15 00:29] LABS: ALBUMIN 2.9 g/dL (3.4-5.0); AMYLASE 69 U/L (25-115); DIRECT BILIRUBIN < 0.1 mg/dL (<0.1-0.3); LIPASE 610 U/L (73-393); MAGNESIUM 2.1 mg/dL (1.8-2.4); PHOSPHORUS 3.5 mg/dL (2.5-4.9); SGOT 94 U/L (15-37); SGPT 100 U/L (30-65); TOTAL BILIRUBIN 0.7 mg/dL (<0.1-1.0); TOTAL PROTEIN 5.6 g/dL (6.4-8.2)
[2018-09-15 00:35] LABS: GGTP 43 U/L (15-85)
[2018-09-15 01:17] LABS: ABSOLUTE NEUTROPHILS 13.1 thou/uL (1.4-8.2); PLATELET ESTIMATE DECREASED
[2018-09-15 05:51] LABS: ABSOLUTE NEUTROPHILS 12.7 thou/uL (1.4-8.2); BASOPHILS 0.3 % (0.0-2.0); HEMATOCRIT 37.5 % (42.0-52.0); HEMOGLOBIN 12.5 gm/dL (14.0-18.0); LYMPHOCYTES 3.6 % (24.0-44.0); MCHC 33.4 g/dL (28.0-37.0); MCV 92.9 fL (80.0-100.0); MONOCYTES 6.5 % (1.0-8.0); PLATELET COUNT 114 thou/uL (150-400); POLYS 89.6 % (36.0-66.0); RBC 4.04 mil/uL (4.50-6.00); WBC 14.1 thou/uL (4.0-11.0)
[2018-09-15 06:10] LABS: APTT 24.2 Seconds (24.5-32.8); FIBRINOGEN 303.6 mg/dL (210-360); INR 1.1; PROTIME 11.7 Seconds (9.3-11.4)
[2018-09-15 06:12] LABS: ALBUMIN 2.8 g/dL (3.4-5.0); CALCIUM 8.6 mg/dL (8.5-10.1); CREATININE 0.7 mg/dL (0.7-1.3); DIRECT BILIRUBIN 0.1 mg/dL (<0.1-0.3); MAGNESIUM 2.1 mg/dL (1.8-2.4); PHOSPHORUS 3.3 mg/dL (2.5-4.9); POTASSIUM 3.8 mmol/L (3.5-5.1); TOTAL BILIRUBIN 0.6 mg/dL (<0.1-1.0); TOTAL PROTEIN 5.6 g/dL (6.4-8.2)
[2018-09-15 06:16] LABS: BE(vivo) 2.5 mmol/L (-2 to +3); HCO3 24.9 mmol/L (22.0-26.0); PCO2 31.6 mmHg (35.0-45.0); PO2 571.3 mmHg (80.0-100.0); pH 7.514 (7.360-7.450); sO2 99.9 % (92.0-98.0)
--- NOTE | 2018-09-15 06:20 | NUR ---
Pt became hypotensive this am. ABP was in 80's. He had a lot of urine output in the past 12 hr. CVP from 12-15 down to 9-10 at this time. Sodium went up so as BUN. Notified DAMIÁN Atwood regarding of finding. Order received. Will give IVF bolus as order and start levophed gtt to support his BP.
--- NOTE | 2018-09-15 08:33 | NUR ---
Late entry : labs/ chest x-ray were entered per [facility] staff requested.
--- NOTE | 2018-09-15 09:22 | NUR ---
Nutrition: Pt NPO x 6 days in ICU. No plans for nutrition support. MTN planned for tomorrow. RD deferring further evals but available by consult.
[2018-09-15 11:01] LABS: BE(vivo) 0.9 mmol/L (-2 to +3); HCO3 24.6 mmol/L (22.0-26.0); PCO2 36.2 mmHg (35.0-45.0); PO2 534.5 mmHg (80.0-100.0); sO2 99.9 % (92.0-98.0)
[2018-09-15 11:21] LABS: BE(vivo) 0.3 mmol/L (-2 to +3); HCO3 28.2 mmol/L (22.0-26.0); PCO2 61.1 mmHg (35.0-45.0); PO2 462.9 mmHg (80.0-100.0); sO2 99.8 % (92.0-98.0)
--- NOTE | 2018-09-15 11:21 | NUR ---
1117 - APNEA TEST COMPLETE - NO BREATH TAKEN OVER A 10 MINUTE PERIOD - VS REMAIN STABLE /C NO CHANGE OR FLUCTUATION - ABG'S DRAWN BEFORE AND AFTER PER PROTOCOL
[2018-09-15 11:22] LABS: pH 7.282 (7.360-7.450)
[2018-09-15 12:21] LABS: HEMATOCRIT 34.1 % (42.0-52.0); HEMOGLOBIN 11.5 gm/dL (14.0-18.0); MCH 31.1 pg (26.0-34.0); MCHC 33.7 g/dL (28.0-37.0); MCV 92.2 fL (80.0-100.0); PLATELET COUNT 131 thou/uL (150-400); RBC 3.69 mil/uL (4.50-6.00); RDW 13.8 % (10.5-14.5); WBC 14.5 thou/uL (4.0-11.0)
[2018-09-15 12:40] LABS: APTT 23.8 Seconds (24.5-32.8); FIBRINOGEN 273.4 mg/dL (210-360); INR 1.1
[2018-09-15 12:52] LABS: ABSOLUTE NEUTROPHILS 13.5 thou/uL (1.4-8.2); PLATELET ESTIMATE NORMAL
[2018-09-15 13:13] LABS: ALBUMIN 2.6 g/dL (3.4-5.0); CALCIUM 8.5 mg/dL (8.5-10.1); CREATININE 0.8 mg/dL (0.7-1.3); DIRECT BILIRUBIN 0.1 mg/dL (<0.1-0.3); MAGNESIUM 2.1 mg/dL (1.8-2.4); POTASSIUM 4.2 mmol/L (3.5-5.1); TOTAL BILIRUBIN 0.6 mg/dL (<0.1-1.0); TOTAL PROTEIN 5.2 g/dL (6.4-8.2)
== END 2018-09-15 11:17 | DRG 207 ==
LOC: ER 22:50 → EROBS 09-09 01:35 → EDBD 09-09 01:35 → ICU 09-09 01:35
PROVIDERS: Hospitalist; Internal Medicine; Internal Medicine Cardiovascular Disease; Internal Medicine Pulmonary Disease; Nurse Practitioner Family; Pediatrics; Student in an Organized Health Care Education/Training Program; ADMIT Internal Medicine
PROC: 0BH17EZ Insertion of Endotracheal Airway into Trachea, Via Natural or Artificial Opening (ICD-10-PCS; principal; 2018-09-09)
PROC: B548ZZA Ultrasonography of Superior Vena Cava, Guidance (ICD-10-PCS; principal; 2018-09-09)
PROC: 02HV33Z Insertion of Infusion Device into Superior Vena Cava, Percutaneous Approach (ICD-10-PCS; principal; 2018-09-09)
PROC: 5A1955Z Respiratory Ventilation, Greater than 96 Consecutive Hours (ICD-10-PCS; principal; 2018-09-09)
PROC: 03HY32Z Insertion of Monitoring Device into Upper Artery, Percutaneous Approach (ICD-10-PCS; principal; 2018-09-09)
PROC: 03HY32Z Insertion of Monitoring Device into Upper Artery, Percutaneous Approach (ICD-10-PCS; 2018-09-10)
DX: J96.01 Acute respiratory failure with hypoxia (principal); G93.6 Cerebral edema; K72.01 Acute and subacute hepatic failure with coma; G93.1 Anoxic brain damage, not elsewhere classified; E87.4 Mixed disorder of acid-base balance; I42.9 Cardiomyopathy, unspecified; I50.20 Unspecified systolic (congestive) heart failure; J96.02 Acute respiratory failure with hypercapnia; I46.9 Cardiac arrest, cause unspecified; I49.01 Ventricular fibrillation; F10.129 Alcohol abuse with intoxication, unspecified; F41.9 Anxiety disorder, unspecified; F10.10 Alcohol abuse, uncomplicated; I11.0 Hypertensive heart disease with heart failure; Z79.899 Other long term (current) drug therapy
CPT/HCPCS: 10078; 85026